=== PATIENT | female | born 1970 | race Caucasian/White ===

== ENCOUNTER 2021-06-01 02:09 | Outpatient (CLI) | payer BC, SELFPAY ==
[2021-06-01 12:43] LABS: HCT 37.6 % (36.0-46.0); MCH 22.3 pg (27.0-33.0); MCHC 29.3 % (32.0-36.0); MCV 76.3 fL (80-95); MPV 9.2 fL (8.0-11.0); Platelet Count 285 10^3/uL (130-400); RBC 4.93 10^6/uL (3.93-5.22); RDW 15.1 % (11.7-14.6); RDW-SD 41.2 fL; WBC 6.68 10^3/uL (4.4-10.8)
[2021-06-01 12:48] LABS: ESR 15 mm/hr (0-20)
[2021-06-01 13:20] LABS: D-Dimer 294 ng/mlFEU (<500)
[2021-06-01 13:40] LABS: ALT 22 U/L (14-59); AST 11 U/L (15-37); Albumin 3.5 g/dL (3.4-5.0); Alkaline Phosphatase 72 U/L (46-116); Anion Gap 7.5 mmol/L (3-11); BUN 13 mg/dL (7-18); Bilirubin, Total 0.4 mg/dL (0.2-1.0); CO2 28.5 mmol/L (21.0-32.0); CREATININE 0.7 mg/dL (0.55-1.02); Calcium 8.9 mg/dL (8.5-10.1); Calculated LDL 136 mg/dL (<100); Chloride 104 mmol/L (98-107); Cholesterol 208 mg/dL (<200); Glucose 133 mg/dL (74-106); HDL Cholesterol 39 mg/dL (40-60); Potassium 4.3 mmol/L (3.5-5.1); Sodium 140 mmol/L (136-145); TSH (W/Ref FT4) 1.11 uIU/mL (0.36-3.74); Total Protein 6.3 g/dL (6.4-8.2); Triglyceride 169 mg/dL (<150)
[2021-06-04 11:16] LABS: HIV-1/2 Ag & Ab Screen Negative (Negative)
[2021-06-04 11:28] LABS: Hepatitis C Ab w Rflx HCV PCR Negative (Negative)
== END 2021-06-01 02:10 | disposition home or self-care (01) ==
LOC: LOS 02:09
PROVIDERS: PCP Nurse Practitioner Adult Health; Visit Provider Nurse Practitioner Adult Health
DX: R73.01 Impaired fasting glucose (principal); Z13.220 Encounter for screening for lipoid disorders; Z86.39 Personal history of other endocrine, nutritional and metabolic disease; Z86.711 Personal history of pulmonary embolism; Z68.41 Body mass index [BMI] 40.0-44.9, adult; Z11.4 Encounter for screening for human immunodeficiency virus [HIV]; Z11.59 Encounter for screening for other viral diseases
CPT/HCPCS: 36415; 80053; 80061; 85027; 85652; 86803; 87389; 83036; 84443; 85379

== ENCOUNTER 2021-07-11 01:59 | Outpatient (CLI) | payer BC, SELFPAY ==
--- NOTE | 2021-07-11 08:15 | DI.US_ITS ---
Exam(s) US PELVIS TRANSVAGINAL EXAM: US PELVIS TRANSVAGINAL CLINICAL HISTORY: assess uterus for possible etiologies heavy blding,? FIBROID VS POLYP. TECHNIQUE: Transabdominal and transvaginal pelvic ultrasound was performed using standard protocol. COMPARISON: No exams were available for comparison FINDINGS: KIDNEYS: Kidneys are symmetric in size. No evidence of renal calculi. No evidence of hydronephrosis. No renal mass or cyst identified. UTERUS: Position: Anteverted. Size: 8.5 long by 5.0 AP by 6.8 transverse cm Endometrium: 0.5 cm. Normal for patient's menstrual status. Myometrium: Hypoechoic 4.8 x 5.3 x 4.9 cm mass in the fundus most consistent with a fibroid. Cervix: There is a nabothian cyst present. OVARIES: The ovaries were not visualized transabdominally or transvaginally. No adnexal masses are p resent. CUL-DE-SAC: Free fluid: None. Other: None. IMPRESSION: 1. Normal sonographic appearance of the kidneys. 2. 4.8 x 5.3 x 4.9 cm fundal uterine fibroid. 3. Unremarkable endometrial stripe. 4. Ovaries not visualized transabdominally or transvaginally. No adnexal masses present sonographica lly. DATA REPOSITORY:
--- NOTE | 2021-07-11 12:50 | DI.MAMMO_ITS ---
Exam(s) MAMMO SCREENING EXAM: MAMMO SCREENING CLINICAL HISTORY: screening,Z12.39 TECHNIQUE: Bilateral full field digital CC and MLO mammographic images were obtained with 3D tomosyn thesis and utilizing computer aided detection (CAD). COMPARISON: None. FINDINGS: Masses/Architectural Distortion: There is a focal asymmetry in the outer left breast on the craniocau dad view. Microcalcifications: No suspicious pleomorphic-type are seen. Skin Thickening/Nipple Retraction: None. IMPRESSION: 1. Asymmetry in the outer left breast on the craniocaudad view. 2. This area should be further evaluated with a spot compression view. Ultrasound may be indicated a t that time. BI-RADS Category 0 - Assessment Incomplete: Need additional imaging evaluation Breast Density - Category B - Scattered areas of fibroglandular density Breast density category C or D implies that the patient has dense breast tissue. Dense breast tissue is very common and is not abnormal but dense breast tissue can make it harder to find cancer on a ma mmogram. Also, dense breast tissue may increase their breast cancer risk. This information about the result of the mammogram report was provided to the patient to raise their awareness. Use this report when you speak with the patient about their risks for breast cancer, which includes their family hist ory. At that time, you may recommend for more screening tests (Ultrasound or MRI) as they might be us eful based on their risk. A negative radiographic report should not delay biopsy if a dominant or clinically suspicious mass is present. Up to ten percent of cancers are not identified on mammography. A negative report may reinforce clinical impression. Adenosis and dense breasts may obscure an underlying neoplasm. False positive reports average 6 to 10%. Patient will receive a letter notifying them of these results.
== END 2021-07-11 02:19 ==
PROVIDERS: PCP Nurse Practitioner Adult Health; Visit Provider Nurse Practitioner Adult Health
DX: Z12.31 Encounter for screening mammogram for malignant neoplasm of breast (principal); R92.8 Other abnormal and inconclusive findings on diagnostic imaging of breast; N92.0 Excessive and frequent menstruation with regular cycle; D25.9 Leiomyoma of uterus, unspecified
CPT/HCPCS: 77063; 77067; 76830; 76856

== ENCOUNTER 2021-07-24 16:32 | Outpatient (REF) | payer BC, SELFPAY ==
--- NOTE | 2021-07-24 15:00 | ENDOMET_PTH ---
PATIENT: Kacey Reaves LOC: [facility] U#:[id number] AGE/SX: 50/F ROOM: RE07/24/[address]: Judi Jett MD : 1970 BED: DIS: 07/24/2021 SPEC #: [id number] RECD: 07/24/21 18:13 STATUS: TERRIE REQ #: [id number] NILAY: 07/24/21 15:[address]: Judi Jett DEPT: Surgical Specimen RECD BY: Jesi Rivera ENTERED: 07/24/21 18:13 SP TYPE: Endomet OTHR DR: Yisel Kelley APRN Tissues: 1 - ENDOMETRIUM BX/LLOYD Procedures: GROSS AND MICRO LEVEL 4 IMMUNOPEROXIDASE STAIN Comments: [id number]
--- NOTE | 2021-07-24 15:30 | PAPFT_PTH ---
PATIENT: Kacey Reaves LOC: [facility] U#:[id number] AGE/SX: 50/F ROOM: RE07/24/[address]: Judi Jett MD : 1970 BED: DIS: 07/24/2021 SPEC #: [id number] RECD: 07/24/21 18:22 STATUS: [place] REQ #: [id number] NILAY: 07/24/21 15:[address]: Judi Jett DEPT: [facility] Cytology RECD BY: Jesi Rivera ENTERED: 07/24/21 18:22 SP TYPE: PAPFT OTHR DR: Yisel Kelley APRN Tissues: 1 - CX/ENDOCX FOR PAP SMEARS Procedures: PAP THIN PREP/UVM Screening HPV DNA PROBE Comments: [id number]
== END 2021-07-24 16:33 | disposition home or self-care (01) ==
LOC: LBN 16:32
PROVIDERS: PCP Nurse Practitioner Adult Health; Visit Provider Obstetrics & Gynecology
DX: C54.1 Malignant neoplasm of endometrium (principal); Z12.4 Encounter for screening for malignant neoplasm of cervix; Z01.419 Encounter for gynecological examination (general) (routine) without abnormal findings
CPT/HCPCS: 88142; 88305; 87624; 88361

== ENCOUNTER 2021-08-08 02:10 | Outpatient (CLI) | payer BC, SELFPAY ==
--- NOTE | 2021-08-08 | DI.US_ITS ---
Exam(s) US BREAST LT LIMITED EXAM: US BREAST LT COMPLETE CLINICAL HISTORY: F/U to [facility] mammo, asymmetry LT breast. TECHNIQUE: Complete ultrasound examination left breast was performed including all 4 quadrants as we ll as the retroareolar region. Left axilla was also scanned. COMPARISON: Prior mammograms were reviewed. TODAY'S DIAGNOSTIC MAMMOGRAM WAS REVIEWED FINDINGS: There are no ultrasound findings in the area of possible concern seen on the mammogram (which is less concerning on dedicated spot 3D mammography view performed today prior to this ultrasound) However, at the 1 o'clock position there is a 9 by 4 millimeter wider than taller slightly lobulated nodule which exhibits neutral through transmission. This is probably a fibroadenoma. More laterally at 1 o'clock position there is a benign-appearing lymph node IMPRESSION: 1. No significant ultrasound finding in the lateral aspect of the breast which was the area of concer n on the mammogram and is also less concerning on additional spot compression 3D mammographic view pe rformed today. 2. There is a 9 x 4 millimeter wider than taller solid lobulated nodule at the 1 o'clock position, pr obably fibroadenoma. 3. Finding discussed by myself with the patient today. Apparently she was just diagnosed with uterin e cancer and is having surgery next week. We decided that appropriate follow-up for this left breast nodule would be repeat ultrasound in 3 months. BI-RADS Category 3 - 3 month - Probably Benign Finding: Recommend follow-up mammography in 3 months Breast Density - Category B - Scattered areas of fibroglandular density Breast density Category C or D implies that the patient has dense breast tissue. Dense breast tissue can make it harder to find cancer on a mammogram. Dense breast tissue is also associated with an incr eased risk of breast cancer. This information about the result of the mammogram report was provided to the patient to raise their awareness. Use this report when you speak with the patient about their risks for breast cancer, which includes their family history. At that time, you may recommend additional screening tests (Ultrasoun d or MRI) as these tests may add significant information. A negative radiographic report should not delay biopsy if a dominant or clinically suspicious mass is present. Up to ten percent of cancers are not identified on mammography. A negative report may reinforce clinical impression. Adenosis and dense breasts may obscure an underlying neoplasm. False positive reports average 6 to 10%. Patient will receive a letter notifying them of these results.
--- NOTE | 2021-08-08 | DI.MAMMO_ITS ---
Exam(s) MG MAMMO SCREEN CALL BACK UNI EXAM: MAMMO SCREEN CALL BACK UNI-LEFT CLINICAL HISTORY: F/U TO [facility] MAMMO, ASYMMETRY LT BREAST. TECHNIQUE: Unilateral spot mammographic images obtained with 3D tomosynthesisand utilizing computer aided detection (CAD). . COMPARISON: Prior mammograms were reviewed. This additional imaging was performed due to findings described on the recent screening mammogram of 07/11/2020. FINDINGS: Additional mammographic views performed todayrender this area less concerning. Ultrasound performed today reveals no significant focal ultrasound findings at this location.. Howev er, the ultrasound does reveal an abnormal finding elsewhere in the breast at the 1 o'clock position which will require appropriate follow-up. Please see separate ultrasound report IMPRESSION: No radiographic evidence of malignancy. Ultrasound performed today revealed and 9 x 4 millimeter nodule at the 1 o'clock position, not corres ponding to this area of concern on the recent screening mammogram. Please see that separate ultrasou nd report Appropriate follow-up as discussed by myself with the patient today is repeat left breast ultrasound in 3 months. The patient is having surgery next week for gynecologic malignancy.. The patient was informed of these findings and recommendations prior to leaving the department today. BI-RADS Category 3 - 3 month - Probably Benign Finding: Recommend follow-up mammography in 3 months Breast Density - Category B - Scattered areas of fibroglandular density Breast density Category C or D implies that the patient has dense breast tissue. Dense breast tissue can make it harder to find cancer on a mammogram. Dense breast tissue is also associated with an incr eased risk of breast cancer. This information about the result of the mammogram report was provided to the patient to raise their awareness. Use this report when you speak with the patient about their risks for breast cancer, which includes their family history. At that time, you may recommend additional screening tests (Ultrasoun d or MRI) as these tests may add significant information. A negative radiographic report should not delay biopsy if a dominant or clinically suspicious mass is present. Up to ten percent of cancers are not identified on mammography. A negative report may reinforce clinical impression. Adenosis and dense breasts may obscure an underlying neoplasm. False positive reports average 6 to 10%. Patient will receive a letter notifying them of these results.
== END 2021-08-08 02:30 ==
PROVIDERS: PCP Nurse Practitioner Adult Health; Visit Provider Nurse Practitioner Adult Health
DX: Z12.31 Encounter for screening mammogram for malignant neoplasm of breast (principal); R92.8 Other abnormal and inconclusive findings on diagnostic imaging of breast; N63.21 Unspecified lump in the left breast, upper outer quadrant
CPT/HCPCS: 76642; 77063; 77067

== ENCOUNTER 2021-08-23 01:58 | Outpatient (CLI) | payer BC, SELFPAY ==
--- NOTE | 2021-08-23 | DI.US_ITS ---
Exam(s) US NEEDLE LOCAL BREAST WO RAD EXAM: US NEEDLE LOCAL BREAST WO RAD CLINICAL HISTORY: LT BREAST MASS, ULTRASOUND GUIDED BIOPSY TECHNIQUE: Ultrasound performed using standard protocol. COMPARISON: US US BREAST LT LIMITED from 08/08/2021 FINDINGS: Ultrasound guidance was provided for breast biopsy performed by Dr. Billings. Please see the procedur e note. IMPRESSION: DATA REPOSITORY:
--- NOTE | 2021-08-23 14:22 | OPPNE_ITS ---
Date of service: 08/23/21 Time of Service: 12:30 Procedure Note Date of procedure: 08/23/21 Procedure: Left Breast Core needle biopsy Surgeon/Proceduralist/Physician: Mayra Hector Procedure Diagnosis: Left suspicious Breast lesion Procedure Indications: Mrs Reaves is a pleasant 50-year-old female who was referred to our office for a left breast biopsy. She underwent a mammogram and ultrasound and this showed a suspicious lesion at the 11 o'clock position 1 cm from the nipple. The patient also has been recently diagnosed with endometrial adenocarcinoma. She is getting ready to have surgery for that but it is on hold until they know what this breast lesion is. 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 The patient does have a maternal aunt with breast cancer who was diagnosed in her 70s. There is no first-degree relative with breast cancer. Risks, benefits, alternatives and complications were all reviewed with the patient. Complications include but are not limited to bleeding, hematoma, inability to get tissue samples, pain. Questions were answered to her satisfaction and she wished to proceed. No guarantees were given or implied. Procedure Description: Pre-op Dx: Left Breast Mass Post-op Dx: same Procedure: US guided left Breast core needle biopsy Surgeon: Drake Hector MD Anesthesia: Local anesthesia with 1% Lidocaine- 5 cc Blood loss: 2 cc Specimen: Core needle biopsy Complications: no immediate complications Procedure: After informed consent was obtained the patient was placed in a supine position. US was done of the Breast and the lesion was localized by the US tech. The skin was cleaned with alcohol and infiltrated with the above local anesthetic. The skin was then prepped. An incision was made with an 11 blade. Using a 14 gauge core needle 2 specimens were removed and placed on telfa and placed in formalin. A titanium clip was then placed into the lesion under US guidence. The skin was cleaned and dried and a band aid was applied. The patient tolerated the procedure well and there were no immediate complications. cc: Dictated by: DRAKE HECTOR MD Dictated: 08/23/21Time: 142 <Electronically signed by Mayra Hector M.D.> Date: 1426 Date: Date: Transcribed Date: 08/23/21 Transcribed Time: y: BAO This is privileged, confidential information, intended only for the provider named. Any use or distribution by any person other than this provider is strictly prohibited. If you receive this report in error, please notify us immediately at [phone] and return the original report to us at the address above. Thank you.
== END 2021-08-23 02:18 ==
PROVIDERS: PCP Nurse Practitioner Adult Health; Visit Provider Surgery
DX: R92.8 Other abnormal and inconclusive findings on diagnostic imaging of breast (principal); Z80.3 Family history of malignant neoplasm of breast; N60.22 Fibroadenosis of left breast
CPT/HCPCS: 19083; 76942

== ENCOUNTER 2021-08-23 13:11 | Outpatient (REF) | payer BC, SELFPAY ==
--- NOTE | 2021-08-23 12:54 | BREAST_PTH ---
PATIENT: Kacey Reaves LOC: [facility] U#:[id number] AGE/SX: 50/F ROOM: RE08/23/[address]: Mayra Billings MD : 1970 BED: DIS: 08/23/2021 SPEC #: [id number] RECD: 08/24/21 10:44 STATUS: TERRIE REQ #: [id number] NILAY: 08/23/21 12:[address]: Mayra Billings DEPT: Surgical Specimen RECD BY: Ksenia Haddad ENTERED: 08/24/21 10:46 SP TYPE: Breast OTHR DR: YASMIN Delarosa Ivy Tissues: 1 - BREAST BX NEEDLE Procedures: GROSS AND MICRO LEVEL 4 Comments: [id number]
--- NOTE | 2021-08-23 14:22 | W.PROCNOTE ---
Date of service: 08/23/21 Time of Service: 12:30 Procedure Note Date of procedure: 08/23/21 Procedure: Left Breast Core needle biopsy Surgeon/Proceduralist/Physician: Mayra Billings Procedure Diagnosis: Left suspicious Breast lesion Procedure Indications: Mrs Reaves is a pleasant 50-year-old female who was referred to our office for a left breast biopsy. She underwent a mammogram and ultrasound and this showed a suspicious lesion at the 11 o'clock position 1 cm from the nipple. The patient also has been recently diagnosed with endometrial adenocarcinoma. She is getting ready to have surgery for that but it is on hold until they know what this breast lesion is. 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 The patient does have a maternal aunt with breast cancer who was diagnosed in her 70s. There is no first-degree relative with breast cancer. Risks, benefits, alternatives and complications were all reviewed with the patient. Complications include but are not limited to bleeding, hematoma, inability to get tissue samples, pain. Questions were answered to her satisfaction and she wished to proceed. No guarantees were given or implied. Procedure Description: Pre-op Dx: Left Breast Mass Post-op Dx: same Procedure: US guided left Breast core needle biopsy Surgeon: Chester Billings MD Anesthesia: Local anesthesia with 1% Lidocaine- 5 cc Blood loss: 2 cc Specimen: Core needle biopsy Complications: no immediate complications Procedure: After informed consent was obtained the patient was placed in a supine position. US was done of the Breast and the lesion was localized by the US tech. The skin was cleaned with alcohol and infiltrated with the above local anesthetic. The skin was then prepped. An incision was made with an 11 blade. Using a 14 gauge core needle 2 specimens were removed and placed on telfa and placed in formalin. A titanium clip was then placed into the lesion under US guidence. The skin was cleaned and dried and a band aid was applied. The patient tolerated the procedure well and there were no immediate complications.
== END 2021-08-23 13:12 | disposition home or self-care (01) ==
LOC: LBN 13:11
PROVIDERS: PCP Nurse Practitioner Adult Health; Visit Provider Surgery
DX: N60.22 Fibroadenosis of left breast (principal); N64.59 Other signs and symptoms in breast
CPT/HCPCS: 88305

== ENCOUNTER 2022-01-23 02:31 | Outpatient (CLI) | payer BC, SELFPAY ==
[2022-01-23 09:20] LABS: HCT 44.4 % (36.0-46.0); HGB 14.3 g/dL (11.2-15.7); MCH 26.4 pg (27.0-33.0); MCHC 32.2 % (32.0-36.0); MCV 82.1 fL (80-95); MPV 9.1 fL (8.0-11.0); Platelet Count 252 10^3/uL (130-400); RBC 5.41 10^6/uL (3.93-5.22); RDW 13.8 % (11.7-14.6); RDW-SD 40.9 fL
[2022-01-23 10:00] LABS: Hemoglobin A1C 6.4 % (<5.7)
[2022-01-23 10:41] LABS: Iron 54 ug/dL (50-170); Total Iron Binding Capacity 371 ug/dL (250-450); Transferrin Sat 15 % (15-50)
[2022-01-23 11:13] LABS: ALT 28 U/L (14-59); AST 11 U/L (15-37); Albumin 3.8 g/dL (3.4-5.0); Alkaline Phosphatase 80 U/L (46-116); Anion Gap 10.5 mmol/L (3-11); BUN 14 mg/dL (7-18); Bilirubin, Total 0.5 mg/dL (0.2-1.0); CO2 26.5 mmol/L (21.0-32.0); CREATININE 0.6 mg/dL (0.55-1.02); Calcium 9.3 mg/dL (8.5-10.1); Calculated LDL 164 mg/dL (<100); Chloride 102 mmol/L (98-107); Cholesterol 249 mg/dL (<200); Ferritin 47 ng/mL (8-252); Folate 16.7 ng/mL (8.6-20.0); Glucose 125 mg/dL (74-106); HDL Cholesterol 40 mg/dL (40-60); Potassium 4.2 mmol/L (3.5-5.1); Sodium 139 mmol/L (136-145); Total Protein 7.2 g/dL (6.4-8.2); Triglyceride 226 mg/dL (<150); Vitamin B12 658 pg/mL (193-986)
== END 2022-01-23 02:32 | disposition home or self-care (01) ==
LOC: LBO 02:32
PROVIDERS: PCP Nurse Practitioner Adult Health; Visit Provider Nurse Practitioner Adult Health
DX: D50.9 Iron deficiency anemia, unspecified (principal); E11.9 Type 2 diabetes mellitus without complications; N92.0 Excessive and frequent menstruation with regular cycle; Z51.81 Encounter for therapeutic drug level monitoring; Z79.01 Long term (current) use of anticoagulants
CPT/HCPCS: 36415; 80053; 80061; 85027; 82607; 82728; 82746; 83036; 83540; 83550

== ENCOUNTER 2022-02-21 02:40 | Outpatient (CLI) | payer BC, SELFPAY | END 2022-02-21 02:41 | disposition home or self-care (01) | LOC: DS 02:40 | PROVIDERS: PCP Nurse Practitioner Adult Health; Visit Provider Dietitian, Registered ==

== ENCOUNTER 2022-03-05 06:22 | Outpatient (CLI) | payer BC, SELFPAY | END 2022-03-05 06:23 | disposition home or self-care (01) | LOC: DS 06:22 | PROVIDERS: PCP Nurse Practitioner Adult Health; Visit Provider Dietitian, Registered ==

== ENCOUNTER 2022-09-12 03:05 | Outpatient (CLI) | payer BC, SELFPAY ==
[2022-09-12 08:34] LABS: Bilirubin Negative (Negative); Blood Negative (Negative); Clarity Clear (Clear); Glucose Negative (Negative); Ketones Negative (Negative); Leukocyte Esterase Negative (Negative); Nitrite Negative (Negative); Specific Gravity >= 1.030 (1.005-1.025); Urobilinogen 0.2 EU/dL (Up TO 0.2)
[2022-09-12 08:50] LABS: Calculated LDL 179 mg/dL (<100); Cholesterol 259 mg/dL (<200); HDL Cholesterol 47 mg/dL (40-60); Hemoglobin A1C 6.2 % (<5.7); Triglyceride 166 mg/dL (<150)
== END 2022-09-12 03:06 | disposition home or self-care (01) ==
PROVIDERS: PCP Nurse Practitioner Adult Health; Visit Provider Nurse Practitioner Adult Health
DX: E11.69 Type 2 diabetes mellitus with other specified complication (principal); E78.5 Hyperlipidemia, unspecified; R30.0 Dysuria
CPT/HCPCS: 36415; 80061; 81003; 83036

== ENCOUNTER 2022-09-19 15:20 | Outpatient (REF) | payer BC, SELFPAY ==
[2022-09-21 11:28] LABS: COVID-19 RT-PCR UVMMC Result Negative (Negative)
== END 2022-09-19 15:21 | disposition home or self-care (01) ==
LOC: LBN 15:20
PROVIDERS: PCP Nurse Practitioner Adult Health; Visit Provider Nurse Practitioner Adult Health
DX: J02.9 Acute pharyngitis, unspecified (principal); R09.81 Nasal congestion; Z20.822 Contact with and (suspected) exposure to COVID-19
CPT/HCPCS: U0003

== ENCOUNTER 2022-11-07 17:35 | Emergency (ER) | payer BC, SELFPAY ==
[2022-11-07 17:37] VITALS: BP 176/75; PULSE 96; RESP 16; TEMP 36.6; O2SAT 100
--- NOTE | 2022-11-07 18:45 | DI.RAD_ITS ---
Exam(s) XR KNEE RT 3V AP,LAT,BENNIE EXAM: XR KNEE RT 3V AP,LAT,BENNIE CLINICAL HISTORY: medial knee pain. TECHNIQUE: 2D digital imaging was performed. Three views. COMPARISON: No exams were available for comparison FINDINGS: BONES: No acute fracture is present. No bony destructive lesion is seen. JOINTS: The knee is normally aligned. No joint effusion is seen. SOFT TISSUE: Normal. IMPRESSION: Unremarkable radiographs of the right knee. DATA REPOSITORY: RADIATION DOSE DELIVERED:
--- NOTE | 2022-11-07 18:52 | ED.GENADUL_ITS ---
Discharge Plan Disposition Patient Disposition: Home Condition: Improving Discharge Details Clinical Impression: Right knee sprain Primary Care Provider: Yisel Kelley ED Provider: Gurmeet Finney Home Meds and New Rx's Prescriptions: No Action (DME) Blood Glucose Test Strip See Rx Instructions .MEDSUPPLY Qty: 200 3RF Rx Instructions: As directed to check blood glucose twice per day for diabetes. No insulin. Dispense covered brand. (DME) lancets Misc See Rx Instructions .ROUTE .MEDSUPPLY Qty: 200 0RF Rx Instructions: As directed to check blood glucose 2x/d for new diabetes. No insulin. Dispense covered brand. Discharge Instructions Instructions: Knee Sprain (ED) Additional Instructions: May use the provided hydrocodone as needed for severe or breakthrough pain. This medication contains Tylenol, so please do not use additional Tylenol at the same time as taking this medication. You may use ibuprofen as needed for discomfort as well. Crutches and knee brace while awake and out of bed. Apply ice while at rest to reduce discomfort. We have placed a referral to the orthopedic office for follow-up. The office #[phone]. Medical Decision Making 52-year-old female who has been pursuing physical therapy for chronic right knee pain. Tonight she was running to avoid a charging 350 pound pig when she felt medial right knee pain with the leg in extension. She was then unable to weight-bear due to pain and also noted pain with extension of the knee and flexion of the hip. On exam patient has reproducible medial joint line pain pain with external rotation of the foot and pain with extension of the leg. Referred for x-ray which does not show any fracture, dislocation or effusion. Will place in a hinged knee brace with crutches. Concern for meniscus injury. Will refer to orthopedics for outpatient evaluation. HPI General Mode of arrival: wheelchair . Date/Time Provider Initiated Documentation: 11/07/22 18:10 . Limitations to Documentation: no limitations . Information obtained by: patient . History of Present Illness 52 year old F presents to the emergency department with the chief complaint of Right knee pain, described as moderate, Quality is described as dull and constant, and is localized to the right and lower extremity. Patient reports no radiation. Patient started experiencing this hour(s) and it has been constant. Rest improves symptom(s), Movement worsens symptoms . Patient notes denies weakness. Patient did receive the following treatments prior to arrival, NSAID Related Data Home Medications Medication Instructions Recorded Confirmed lancets #200 ea 08/20/21 11/07/22 blood sugar diagnostic (Blood #200 ea 01/25/22 11/07/22 Glucose Test strips) Previous Rx's Medication Instructions Recorded lancets #200 ea 08/20/21 blood sugar diagnostic (Blood #200 ea 01/25/22 Glucose Test strips) Allergies Allergy/AdvReac Type Severity Reaction Status Date / Time amoxicillin [From Augmentin] Allergy Mild Hives Verified 11/07/22 17:42 clavulanic acid Allergy Mild Hives Verified 11/07/22 17:42 [From Augmentin] Sulfa (Sulfonamide AdvReac Mild gi symptoms Verified 11/07/22 17:42 Antibiotics) General Stated Complaint: Orthopedic OMEGA: 4 Review of Systems Narrative: No other injury. Denies hip or ankle pain. 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 History of pulmonary embolus (PE) 1999--provoked, OCP ([place]), , state; x2 hematologists consults ([place] 1999, [place] ~2014) History of recurrent miscarriages, not currently Progesterone (oral) resolved this History of thyroid nodule Hypochromic microcytic anemia Likely r/t menorrhagia; iron supplementation rec 07/2021, iron studies pending; improved s/p hysterectomy Menorrhagia x1 y -->pelvic U/S-->large fibroid; consider [employer] referral; endometrial cancer Pap smear for cervical cancer screening Seasonal allergies Better in [place], than WAS Uterine leiomyoma Vegetarian diet Discont late 2020 Surgical History Nieves filter in place H/O section H/O dilation and curettage History of hysterectomy with bilateral oophorectomy (09/13/21) robotic w/ rgt and left [place] LND, required ex lap to remove uterus Family History Mother , by suicidal drowning (2014) Anxiety Depression Bipolar 1 disorder Fibroids Maternal Aunt , at 72 yrs Breast cancer Stroke Fibroids Father , heart attack at 54yo Heart disease Alcohol abuse Paternal Grandmother Heart disease Paternal Uncle Stroke Brother DVT (deep venous thrombosis) s/p flight, on apixaban Maternal Grandmother Fibroids Social History Smoking/Tobacco Use Status: Never Second Hand Exposure: No Smoking risk assessment performed?: Yes Alcohol Intake: current Alcohol Intake frequency: a few times a month Counseling given: No Drug use: Daily Substance use type: marijuana Details: CBD/THC for sleep Adopted: No Caregiver/Support person: No Foster care: Yes Household members: spouse, children and friend(s) Housing: house Number of Children: 1 number of grandchildren: 0 Communication Needs: None Education Level: college Details: associate's degree Do you need help understanding health information?: Never current occupation: [employer] Pets and animals: Yes Pets and animals: dog(s) and farm animals Sexually active: Yes Do you think of yourself as: straight/heterosexual Current gender identity: female What is your relationship status?: How often do you talk on the phone with friends or family?: three or more times per week How often do you get together with friends or relatives?: never Do you belong to any clubs or organized social groups?: yes Panel score (0-1 are the most socially isolated patients): 3 What type of physical activity do you participate in: walking, regular exercise, other Details: rowing machine and yoga Duration: 15-30 minutes/day Frequency: 3-4 times per week Sharon/Confucianism: Islam Special sharon needs: No Seatbelt use: always Helmet use: Yes Helmet use: always Drive intox or ride w/intox wheelchair van driver: No Water heater temp set <120 deg: Yes Working smoke detector in home: Yes Fire extinguisher in home: Yes Carbon monox detector in home: Yes Firearms in home: Yes Firearms unloaded and locked: Yes Do you feel safe at home: Yes Do you feel safe in your relationship?: Yes Female Reproductive History Menstrual Age of Menarche: 11 Duration of menses: 3-5 days control method: permanent sterilization (vasectomy) History History 7 Para 1 Hx # Term Pregnancies 1 Multiple births Hx # Pregnancies 0 Ectopic pregnancies AB induced 0 Hx Number of Living Children 1 AB spontaneous 6 Past Pregnancies Del. Date GA/Weeks # Preg Succ Route Wgt Sex Labor Lgth Anesth esia Location Prov Complic 01/17/00 40 Delivery Date: 01/17/00 Last Updated by: Judi Jett M.D. CS for failure to progress Exam Narrative Exam Narrative: GEN: awake, alert, oriented 3. Pleasant, well groomed, interactive. HEAD: Normocephalic, atraumatic EYES: PERRL, EOMI NECK: Full ROM, no JOAN, no menigismus CHEST/RESP: Nontender, no respiratory distress EXT: Right knee range of motion limited due to pain. With passive extension the patient develops medial knee pain. There is pain with palpation of the medial joint line. No laxity appreciated. Neuro: Grossly normal neurologic exam, conversant, interactive. Psych: Speech fluent, thoughts congruent, affect normal Course Vital Signs Vital signs: Vital Signs Temperature 36.6 C 11/07/22 17:37 Pulse 96 H 11/07/22 17:37 Respiratory Rate 16 11/07/22 17:37 Blood Pressure 176/75 H 11/07/22 17:37 Pulse Oximetry 100 11/07/22 17:37 Temperature 36.6 C 11/07/22 17:37 Temperature Source Temporal Artery Scan 11/07/22 17:37 Pulse 96 H 11/07/22 17:37 Respiratory Rate 16 11/07/22 17:37 Respiratory Effort Non-Labored 11/07/22 17:40 Blood Pressure 176/75 H 11/07/22 17:37 Blood Pressure Position Sitting 11/07/22 17:37 Pulse Oximetry 100 11/07/22 17:37 Oxygen Delivery Method Room Air 11/07/22 17:37 Oxygen Flow Rate 0 11/07/22 17:37 Pain Level 8 11/07/22 17:37
--- NOTE | 2022-11-07 20:01 | DI.VRAD_ITS ---
PROCEDURE INFORMATION: Exam: XR Right Knee Exam date and time: 11/07/2022 7:37 PM Age: 52 years old Clinical indication: Injury or trauma; Other: Injury with farm animal; Blunt trauma; Right; Injury details: Medial knee pain TECHNIQUE: Imaging protocol: Radiologic exam of the Right knee. Views: 3 views. COMPARISON: No relevant prior studies available. FINDINGS: Bones/joints: No acute fracture. No dislocation. No joint effusion. Soft tissues: No soft tissue gas or foreign body. IMPRESSION: 1. No fracture or dislocation. 2. No joint effusion. 3. No soft tissue gas or foreign body. Dictated and Authenticated by: Ricky Richardson MD. Ordering:LIBERTY Levi MD
--- NOTE | 2022-11-11 13:31 | NUR.NOTE ---
Nursing Note: Accessed chart for [facility] billing purposes.
== END 2022-11-07 20:10 | disposition home or self-care (01) ==
PROVIDERS: Emergency Provider Emergency Medicine; PCP Nurse Practitioner Adult Health
DX: S83.8X1A Sprain of other specified parts of right knee, initial encounter (principal); X50.1XXA Overexertion from prolonged static or awkward postures, initial encounter
CPT/HCPCS: 29505; 73562; 99283

== ENCOUNTER 2022-11-27 03:05 | Outpatient (CLI) | payer BC, SELFPAY ==
[2022-11-27 08:31] LABS: Calculated LDL 172 mg/dL (<100); Cholesterol 257 mg/dL (<200); HDL Cholesterol 49 mg/dL (40-60); Triglyceride 181 mg/dL (<150)
== END 2022-11-27 03:06 | disposition home or self-care (01) ==
LOC: LBO 03:05
PROVIDERS: PCP Nurse Practitioner Adult Health; Visit Provider Nurse Practitioner Adult Health
DX: E11.69 Type 2 diabetes mellitus with other specified complication (principal); E78.5 Hyperlipidemia, unspecified
CPT/HCPCS: 36415; 80061

== ENCOUNTER 2022-11-29 00:31 | Outpatient (CLI) | payer BC, SELFPAY ==
--- NOTE | 2022-11-29 06:45 | DI.MRI_ITS ---
Exam(s) MR LOWER JOINT RT WO EXAM: MR LOWER JOINT RT WO CLINICAL HISTORY: R KNEE PAIN, ? MEDIAL MENISCUS TEAR,sprain,m25.561,s83.91xa. TECHNIQUE: Multiplanar multisequence MRI was performed. COMPARISON: CR,XR XR KNEE RT 3V AP,LAT,BENNIE from 11/07/2022 FINDINGS: BONES: There is no fracture or contusion pattern. JOINTS: There is a focus of hyperintense signal seen in the posterior articular cartilage of the late ral femoral condyle with some fissuring. There is also mild hyperintense signal seen in the posterio r articular cartilage overlying the medial femoral condyle. There is a small effusion present. TENDONS: Extensor mechanism: Unremarkable. Medial retinaculum: Unremarkable. Lateral retinaculum: Unremarkable. Popliteus: Unremarkable. MUSCLES: Unremarkable. MENISCI: There is a tear of the body and posterior horn of the medial meniscus. The lateral meniscus is unremarkable. SOFT TISSUES: Unremarkable. LIGAMENTS: Anterior Cruciate: Unremarkable. Posterior Cruciate: Unremarkable. Medial Collateral:There is mild hyperintense signal medial to the MCL suggesting a grade 1 sprain. Lateral Collateral: Unremarkable. OTHER: IMPRESSION: 1. Tear of the medial meniscus. 2. Grade 1 sprain of the MCL. 3. Bilateral osteochondral injury as described above. 4. Small joint effusion. DATA REPOSITORY:
== END 2022-11-29 00:51 ==
LOC: DI 00:31
PROVIDERS: PCP Nurse Practitioner Adult Health; Visit Provider Student in an Organized Health Care Education/Training Program
DX: S83.241A Other tear of medial meniscus, current injury, right knee, initial encounter (principal); S83.411A Sprain of medial collateral ligament of right knee, initial encounter; M25.461 Effusion, right knee; X58.XXXA Exposure to other specified factors, initial encounter
CPT/HCPCS: 73721

== ENCOUNTER 2023-09-22 06:09 | Day surgery (SDC) | payer BC, SELFPAY ==
--- NOTE | 2023-09-21 15:57 | W.PM.DSUDISC ---
Date of service: 09/22/23 Time of Service: 09:16 Discharge Plan Disposition Patient Disposition: Home Condition: Good Discharge Details Reason For Visit: screening colonoscopy Attending Provider: Yaya Calvillo Primary Care Provider: Yisel Kelley Home Meds and New Rx's Prescriptions: Continued rosuvastatin 5 mg tablet See Rx Instructions .ROUTE .COMPLEX Qty: 90 3RF Dose Instruction: TAKE 1 TABLET BEDTIME CHOLESTEROL Rx Instructions: TAKE 1 TABLET BEDTIME CHOLESTEROL Discontinued bisacodyl [Dulcolax (bisacodyl)] 5 mg tablet,delayed release (DR/EC) 5 mg PO ONCE Qty: 4 0RF Rx Instructions: Take per colonoscopy instructions provided by ordering providers office polyethylene glycol 3350 17 gram/dose powder 17 g PO ONCE Qty: 238 0RF Rx Instructions: Take per colonoscopy instructions provided by ordering providers office Discharge Instructions Instructions: Colorectal Polyps (GEN) Additional Instructions: Marcela, we were able to complete your colonoscopy today without any difficulty. I found a small polyp in your rectum, and another small polyp around 75 cm up from your anus. I removed these both completely. Around 65 cm from your anus was a cluster of moderate to large size polyps. I believe that I removed these all completely. We will take a week or 2 for me to get the results of the polyp report. At that point, I will be in touch with my next recommendations. If you have any questions in the meantime, please do not hesitate to call. 1. If tolerated, consume a soft, low fiber diet for 1-2 days. 2. Do not drive, drink alcohol, operate machinery, make critical decisions, or do activities that require coordination or balance for 24 hours. 3. Because air was put into your colon during the procedure, expelling air from your rectum (passing gas or farting) is normal. 4. You may not have a bowel movement for 1-3 days because of the colonoscopy prep. This is normal. 5. Go directly to the emergency room if you notice any of the following: Develop chills (warm to touch), or if you have a thermometer and your temperature is above 101 Difficulty breathing or difficultly swallowing Persistent vomiting Severe abdominal pain, other than gas cramps Severe chest pain Black, tarry stools Any bleeding ? exceeding one tablespoon 6. Call your physician if the site where your intravenous was started becomes red, swollen, painful, and warm to touch. 7. Your physician has reviewed your pre-procedure medications. Please continue to take those medications as previously ordered. You will be given specific information/education regarding any changes to your medications before leaving. Stand Alone Forms: Coco Tompkins (DSU) Activity:: Activity as Tolerated Diet:: As Tolerated Discharge Orders Discharge Orders: Discharge Order (Routine); Ordered 09/21/23 Ordered By: Yaya Calvillo DS: Diagnosis Discharge Diagnosis (1) Screening for colorectal cancer: Status: Acute Asessment and Plan: I will follow-up on polypectomy results
--- NOTE | 2023-09-21 15:59 | COLE_ITS ---
Date of service: 09/22/23 Time of Service: 09:18 Colonoscopy Report Date of procedure: 09/22/23 Pre-op diagnosis general: screening colonoscopy Post-op diagnosis procedure note: other (Colorectal polyps) Procedure: Colonoscopy with polypectomy Surgeon: Yaya Calvillo Anesthesia Type: General:No Airway Estimated blood loss (mL): 15 Pathology: other (0.25 cm rectal polyp, polyps ranging in size from 0.25 to 0.75 cm at 65 cm from the anus, 0.25 cm polyp at 75 cm) Complications: None Disposition: same day Indications: Marcela is a 53-year-old woman who is here for her first screening colonoscopy. Prep: Miralax/Dulcolax Procedure Start Time: 07:45 Procedure End Time: 08:19 Retraction Time: 27 Findings: 0.25 cm rectal polyp, polyps ranging in size from 0.25 to 0.75 cm at 65 cm from the anus, 0.25 cm polyp at 75 cm Procedure Description: After the induction of monitored anesthetic care, and with the patient in left lateral decubitus position, I began by performing an external anorectal exam.? Perineum and skin were normal, as was the anal verge.? There was no evidence of external hemorrhoids.? Next, I performed a digital rectal exam.? I did not appreciate any abnormal findings.? Next, I advanced a colonoscope into the rect al vault.? I performed retroflexion.? This was normal.? Using insufflation, I then advanced the colonoscope beyond the rectal folds and into the sigmoid colon before advancing towards the cecum.? The scope was noted to be in the cecum by identification of the ileocecal valve and appendiceal orifice.? I then began withdrawing the colonoscope using repeated irrigation as necessary for full evaluation of the colonic mucosa. Around 75 cm from the anal verge I identified a 0.25 cm polyp. ?It appeared sessile in character. ?I was able to remove this with a cold forceps. ?I examined the site, and there was minimal bleeding. ?Once this was completed, I continued to withdraw the scope and examine the remainder of the colonic mucosa.? Around 65 cm from the anus was a small patch of several polyps. This was just distal to the hepatic flexure, within the transverse colon. They ranged in size from 0.25 cm to 0.75 cm. The 2 largest were both about 0.75 cm. These were both pedunculated, and they were removed with energized snare polypectomy. The others were more sessile, and removed with a combination of snare polypectomy as well as cold forceps. Once the scope was withdrawn to the level of the rectum, great care was taken to examine portions of the rectal folds.? At the upper portion of the rectal vault was a 0.25 cm sessile polyp this was also removed with cold forceps without any issue. Finally, the scope was withdrawn and the patient was brought to the same-day surgery recovery unit as the anesthetic wore off. ?The findings and instructions were shared with the patient prior to discharge. Batchelor Bowel Prep Batchelor Bowel Prep Right Colon: 3 Left Colon: 3 Transverse Colon: 3 Total Score: 9
[2023-09-22 06:39] VITALS: BP 140/80; PULSE 98; RESP 16; TEMP 36.8; O2SAT 97
[2023-09-22] MEDS: Lactated Ringers 1,000 ML 80 ML IV (06:53)
--- NOTE | 2023-09-22 07:02 | ANES.PREOP_ITS ---
General Info Date of Service Date Performed: 09/22/23 Height: 5 ft 7 in Weight: 123.4 kg Body Mass Index (BMI): 42.6 Surgical Procedure: Operation Date: 09/22/23 07:35 Proposed Procedure Side Surgeon doyle Calvillo MD Meds Allergies and Home Medications Allergies Allergy/AdvReac Type Severity Reaction Status Date / Time amoxicillin [From Augmentin] Allergy Mild Hives Verified 09/22/23 06:38 clavulanic acid Allergy Mild Hives Verified 09/22/23 06:38 [From Augmentin] Sulfa (Sulfonamide AdvReac Mild gi symptoms Verified 09/22/23 06:38 Antibiotics) Home Medication Medication Instructions Recorded rosuvastatin 5 mg tablet See Rx Instructions .Route 08/07/23 .COMPLEX #90 tabs Current Visit Medications: Current Medications Generic Name Dose Route Start Last Admin Trade Name Freq PRN Reason Stop Dose Admin Hyoscyamine Sulfate 0.125 mg 09/21/23 16:00 Hyoscyamine 0.125 Mg Sl/Oral/Chew SL 10/21/23 15:59 DIRECTED PRN Ringer's Solution 1,000 mls @ 80 mls/hr 09/22/23 06:00 09/22/23 06:53 IV 09/22/23 23:59 80 mls/hr INFUSION RENA Administration IV Miscellaneous Supplies 1 each 09/22/23 06:00 Iv Access IV 09/22/23 23:59 DIRECTED RENA Ondansetron HCl 4 mg 09/21/23 16:00 Ondansetron 4 Mg/2 Ml Vial IVP 10/21/23 15:59 Q4H PRN PRN Nausea / Vomiting Sodium Chloride 0 ml 09/22/23 06:00 Normal Saline Flush 10 Ml Syr IV 09/22/23 23:59 PRN PRN Sodium Chloride 0 ml 09/22/23 06:00 Normal Saline 10 Ml Vial IJ 09/22/23 23:59 DIRECTED PRN Sterile Water 0 ml 09/22/23 06:00 Water,Injection,Sterile 10 Ml Vial IJ 09/22/23 23:59 DIRECTED PRN PFSH Active Problems Active Problems: Problem Status Onset Code Screening for colorectal cancer Z12.11, Z12.12 COVID ~08/05/23 U07.1 Elevated BP without diagnosis of hypertension ~11/2022 R03.0 Acute medial meniscus tear of right knee ~10/2022 S83.241A Diabetes mellitus type 2, controlled ~05/2021 E11.9 Hyperlipidemia associated with type 2 diabetes mellitus ~2021 E11.69, E78.5 BMI 40.0-44.9, adult ~2021 Z68.41 Medical History Medical History (Updated 09/21/23 @ 15:58 by Yaya Calvillo MD) Breast mass in female Endometrial cancer determined by uterine biopsy (~07/2021) 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 History of thyroid nodule History of pulmonary embolus (PE) 1999--provoked, OCP ([place]), , [place]; x2 hematologists consults ([place] 1999, [place] ~2014) History of recurrent miscarriages, not currently Progesterone (oral) resolved this Seasonal allergies Better in [place], than WAS Eczema Hands, sometimes steroid cream Surgical History Surgical History History of hysterectomy with bilateral oophorectomy (09/13/21) robotic w/ rgt and left [place] LND, required ex lap to remove uterus H/O dilation and curettage H/O section [place] filter in place Tobacco Smoking/Tobacco Use Status: Never Passive smoking exposure: No Second hand exposure: No Alcohol Alcohol Intake: current Alcohol intake frequency: a few times a month Substance Use Substance use: Occasionally Substance use type: marijuana Details: CBD/THC for sleep Prental History History 7 Para 1 Hx # Term Pregnancies 1 Multiple births Hx # Pregnancies 0 Ectopic pregnancies AB induced 0 Hx Number of Living Children 1 AB spontaneous 6 Past Pregnancies Del. Date GA/Weeks # Preg Succ Route Wgt Sex Labor Lgth Anesth esia Location [facility] 01/17/00 40 Delivery Date: 01/17/00 Last Updated by: Judi Jett M.D. CS for failure to progress Vital Signs and Lab Results Vital Signs Most Recent Vital Signs in EMR: Most Recent Vital Signs Temp Pulse Resp BP Pulse Ox 36.8 C 98 H 16 140/80 97 09/22/23 06:39 09/22/23 06:39 09/22/23 06:39 09/22/23 06:39 09/22/23 06:39 Lab Results Blood Type / Crossmatch: No Data to Display Complete Blood Count: No Data to Display Complete Metabolic Panel: No Data to Display Liver Function Panel: No Data to Display Coagulation Panel: No Data to Display Cardiac Panel: No Data to Display Arterial Blood Gas: No Data to Display Venous Blood Gas: No Data to Display Pancreas Panel: No Data to Display Thyroid Panel: No Data to Display Infectious Disease: No Data to Display Blood Cultures: No Data to Display Toxicology Panel: No Data to Display Panel: No Data to Display Anesthesia Assessment and Plan Anesthesia History Personal History: No History of Anesthesia Complications Family History: No Family History of Anesthesia Complications Exercise Tolerance Exercise Tolerance: Metabolic Equivalents>4 Pertinent Negatives Pertinent Negatives: No Symptoms of GERD, No Major Cardiovascular Symptoms or Complaints and No Major Pulmonary Symptoms or Complaints Cardiac & Pulmonary Exam Cardiac Exam: Normal S1/S2 Heart Sounds Pulmonary Exam: Clear Bilateral Breath Sounds Implantable Cardiac Device Does patient have a Pacemaker or an ICD?: No Airway Exam Known Difficult Airway: No Mallampati Class: 2 Mouth Opening: Normal (> 3cm) Thyromental Distance: Greater than 3 cm Neck Range of Motion: Full ROM Neck Circumference: Normal Teeth Condition: Normal Dentition ASA Classification ASA Score: ASA 3 Emergency Case?: No NPO Status NPO Status: NPO Clears >2 hours, Solids >8 hours Status Status: History of Hysterectomy Anesthesia Plan Resuscitation Status: Full Code Anesthesia Technique: General Anesthesia Airway Planned: Natural Airway Monitors Used: Standard Monitors
[2023-09-22 07:04] VITALS: BMI 42.6
--- NOTE | 2023-09-22 07:50 | BOWEL_PTH ---
PATIENT: Kacey Reaves LOC: [facility] U#:[id number] AGE/SX: 53/F ROOM: RE09/22/[address]: Yaya Calvillo MD : 1970 BED: DIS: 09/22/2023 SPEC #: [id number] RECD: 09/22/23 12:45 STATUS: TERRIE RE #: [id number] NILAY: 09/22/23 07:[address]: Yaya Calvillo DEPT: Surgical Specimen RECD BY: Jesi Rivera ENTERED: 09/22/23 12:46 SP TYPE: Bowel OTHR DR: Yisel Kelley, YASMIN Tissues: 1 - BIOPSY BOWEL 2 - BIOPSY BOWEL 3 - BIOPSY BOWEL Procedures: GROSS AND MICRO LEVEL 4 Comments: [id number]
[2023-09-22 08:27] VITALS: BP 117/73; PULSE 89; RESP 16; TEMP 36.3; O2SAT 95
--- NOTE | 2023-09-22 08:40 | W.ANESPOSTOP ---
Postoperative Evaluation Date, Time and Location Date Performed: 09/22/23 Time Performed: 08:41 Patient Location: Day Surgery Unit Vital Signs Most Recent Imported Vital Signs: Most Recent Vital Signs Temp Pulse Resp BP Pulse Ox 36.3 C L 89 16 117/73 95 09/22/23 08:27 09/22/23 08:27 09/22/23 08:27 09/22/23 08:27 09/22/23 08:27 Pain Score Most Recent Pain Score: Most Recent Pain Score Pain Level 0 09/22/23 08:27 Assessment Mental Status: Awake (Alert & Oriented to Patient Baseline) Airway and Respiratory Function: Patent airway with normal (patient baseline) respiratory exam Cardiovascular Function: Hemodynamically Stable Hydration Status: Adequately Hydrated Nausea & Vomiting: No Nausea or Vomiting Pain: Pt. Denies Any Pain Peripheral Nerve Block: Patient did not receive a nerve block
[2023-09-22 08:49] VITALS: BP 117/79; PULSE 67; RESP 16; TEMP 36.5; O2SAT 99
== END 2023-09-22 09:43 | disposition home or self-care (01) ==
PROVIDERS: PCP Nurse Practitioner Adult Health; Visit Provider Surgery
PROC: 0DJD8ZZ Inspection of Lower Intestinal Tract, Via Natural or Artificial Opening Endoscopic (ICD-10-PCS; CPT 45378; principal; 2023-09-22 07:30)
DX: Z12.11 Encounter for screening for malignant neoplasm of colon (principal); D12.4 Benign neoplasm of descending colon; D37.4 Neoplasm of uncertain behavior of colon
CPT/HCPCS: 45385; 45380; 88305

== ENCOUNTER 2023-09-24 02:09 | Outpatient (CLI) | payer BC, SELFPAY ==
[2023-09-24 08:44] LABS: Hemoglobin A1C 6.3 % (<5.7)
[2023-09-24 09:23] LABS: ALT 28 U/L (14-59); AST 13 U/L (15-37); Albumin 3.7 g/dL (3.4-5.0); Alkaline Phosphatase 83 U/L (46-116); Anion Gap 8.3 mmol/L (3-11); BUN 10 mg/dL (7-18); Bilirubin, Total 0.5 mg/dL (0.2-1.0); CO2 28.7 mmol/L (21.0-32.0); CREATININE 0.7 mg/dL (0.55-1.02); Calcium 9.6 mg/dL (8.5-10.1); Calculated LDL 84 mg/dL (<100); Chloride 105 mmol/L (98-107); Cholesterol 166 mg/dL (<200); Glucose 125 mg/dL (74-106); HDL Cholesterol 46 mg/dL (40-60); Potassium 4.3 mmol/L (3.5-5.1); Sodium 142 mmol/L (136-145); Total Protein 7.6 g/dL (6.4-8.2); Triglyceride 183 mg/dL (<150)
[2023-09-24 09:25] LABS: COMMENT (LAB VIEW ONLY) 68.49 mg/dL
== END 2023-09-24 02:10 | disposition home or self-care (01) ==
PROVIDERS: PCP Nurse Practitioner Adult Health; Visit Provider Nurse Practitioner Adult Health
DX: E11.69 Type 2 diabetes mellitus with other specified complication (principal); E11.9 Type 2 diabetes mellitus without complications; E78.5 Hyperlipidemia, unspecified; Z68.41 Body mass index [BMI] 40.0-44.9, adult
CPT/HCPCS: 36415; 80053; 80061; 82043; 82570; 83036

== ENCOUNTER 2024-12-31 00:41 | Outpatient (CLI) | payer BC, SELFPAY ==
[2024-12-31 08:20] LABS: Hemoglobin A1C 7.5 % (<5.7)
[2024-12-31 08:32] LABS: ALT 30 U/L (14-59); AST 14 U/L (15-37); Albumin 3.8 g/dL (3.4-5.0); Alkaline Phosphatase 79 U/L (46-116); Anion Gap 5.8 mmol/L (3-11); BUN 13 mg/dL (7-18); Bilirubin, Total 0.57 mg/dL (0.2-1.0); CO2 30.2 mmol/L (21.0-32.0); CREATININE 0.7 mg/dL (0.55-1.02); Calcium 9.3 mg/dL (8.5-10.1); Calculated LDL 109 mg/dL (<100); Chloride 104 mmol/L (98-107); Cholesterol 194 mg/dL (<200); Estimated GFR 103.35 (mL/min/1.73m2); Glucose 179 mg/dL (74-106); HDL Cholesterol 55 mg/dL (40-60); Potassium 4.4 mmol/L (3.5-5.1); Sodium 140 mmol/L (136-145); Total Protein 7.5 g/dL (6.4-8.2); Triglyceride 153 mg/dL (<150)
== END 2024-12-31 00:42 | disposition home or self-care (01) ==
PROVIDERS: PCP Nurse Practitioner Adult Health; Visit Provider Nurse Practitioner Adult Health
DX: E11.69 Type 2 diabetes mellitus with other specified complication (principal); E78.5 Hyperlipidemia, unspecified; E11.9 Type 2 diabetes mellitus without complications
CPT/HCPCS: 36415; 80053; 80061; 83036

== ENCOUNTER 2025-07-08 01:05 | Outpatient (CLI) | payer BC, SELFPAY ==
[2025-07-13 16:07] LABS: Apolipoprotein B, Serum 76 mg/dL (48-124); Beta VLDL Cholesterol Not Detected mg/dL (<15); Beta VLDL Triglycerides Not Detected mg/dL (<15); Cholesterol, Total, CDC 171 mg/dL; Chylomicron Cholesterol 5 mg/dL; Chylomicron Triglycerides 94 mg/dL; HDL Cholesterol, CDC 42 mg/dL (>=50); LpX Not detected; Triglycerides, CDC 283 mg/dL; VLDL Triglycerides 112 mg/dL (<120)
== END 2025-07-08 01:06 | disposition home or self-care (01) ==
LOC: LBO 01:06
PROVIDERS: PCP Nurse Practitioner Adult Health; Referring Provider Nurse Practitioner Adult Health; Visit Provider Nurse Practitioner Adult Health
DX: E11.9 Type 2 diabetes mellitus without complications (principal); E11.69 Type 2 diabetes mellitus with other specified complication; E78.5 Hyperlipidemia, unspecified
CPT/HCPCS: 36415; 80061; 83695; 82172; 82664